=== PATIENT | female | born 1995 | race American Indian/Alaskan Native ===

== ENCOUNTER 2019-04-29 21:48 | Inpatient (IN) | payer SELFPAY ==
[2019-04-30 01:01] LABS: Bacteria,Urine 1+ /HPF (Negative); Bilirubin,Urine NEG (Negative); Blood,Urine NEG (Negative); Color,Urine Yellow (Yellow); Mucus,Urine 3+ /HPF; Urobilinogen,Urine < 2.0 mg/dL (<2.0)
[2019-04-30 01:02] LABS: HCG Qualitative,Urine Negative (Negative)
[2019-04-30] MEDS ORDERED: LIDOCAINE VISCOUS 2% PO ONE (03:45)
[2019-04-30] MEDS ORDERED: NACL 0.9% 1000 ML 1,000 ML IV ONE (03:45)
[2019-04-30] MEDS ORDERED: ALUM-MAG HYDROX-SIMETH 200-200-20MG/5ML PO ONE (03:45)
[2019-04-30] MEDS ORDERED: ZOFRAN ONE ×2 (04:00→18:04)
[2019-04-30] MEDS ORDERED: ZOFRAN IV ONE (04:00)
[2019-04-30 04:18] LABS: Basophils # (Auto) 0.1 K/mm3 (0.0-0.1); Basophils % (Auto) 0.5 % (0.0-1.8); Eosinophils # (Auto) 0.2 K/mm3 (0.0-0.4); Eosinophils % (Auto) 1.7 % (0.0-4.3); Hematocrit 30.2 % (30.3-42.9); Lymphocytes # (Auto) 2.6 K/mm3 (1.2-5.4); Lymphocytes % (Auto) 26.1 % (13.4-35.0); Mean Corpuscular Volume 84 fl (79-97); Monocytes # (Auto) 0.9 K/mm3 (0.0-0.8); Platelet Count 220 K/mm3 (140-440); Red Cell Distribution Width 14.5 % (13.2-15.2)
[2019-04-30 04:23] LABS: Hemoglobin 10.1 gm/dl (10.1-14.3); Mean Corpuscular HGB Conc 33 % (30-34)
--- NOTE | 2019-04-30 04:32 | Emergency Department Report ---
ED Abdominal Pain HPI - General Chief Complaint: Abdominal Pain Stated Complaint: PELVIC,CHEST,ABDOMINAL SHOULDER PAIN Time Seen by Provider: 04/30/19 03:43 Source: patient Mode of arrival: Ambulatory Limitations: No Limitations - History of Present Illness Initial Comments: Patient 23-year-old -French female who presents for abdominal pain lesly t radiates from pelvic to epigastric to right to right shoulder pain described as pressure that moves around as twisting and stabbing, pain is 5/10 pressure relieved by flatulence exacerbated by movment and palpation last BM this afternoon moderate amount, pt denies fever or chills. MD Complaint: abdominal pain Onset/Timin -: days(s) Location: periumbilical Radiation: epigastric Migration to: periumbilical Severity: moderate Severity scale (0 -10): 5 Quality: cramping, sharp Consistency: constant Improves With: other (flatulence) Worsens With: other (movemetn ) Associated Symptoms: nausea, constipation. denies: vomiting, diarrhea, fever, chills, dysuria, melena - Related Data LMP Date: 03/24/19 Allergies Allergy/AdvReac Type Severity Reaction Status Date / Time amoxicillin Allergy Unknown Verified 04/29/19 21:53 ED Review of Systems ROS: Stated complaint: PELVIC,CHEST,ABDOMINAL SHOULDER PAIN Other details as noted in HPI Constitutional: denies: chills, fever Eyes: denies: eye pain, eye discharge, vision change ENT: denies: ear pain, throat pain Respiratory: denies: cough, shortness of breath, wheezing Cardiovascular: denies: chest pain, palpitations Endocrine: no symptoms reported Gastrointestinal: abdominal pain, nausea, constipation. denies: diarrhea, h ematemesis, melena, hematochezia Genitourinary: as per HPI. denies: urgency, dysuria, frequency, hematuria, discharge, abnormal menses, dyspareunia Musculoskeletal: denies: back pain, joint swelling, arthralgia, myalgia Skin: denies: rash, lesions Neurological: denies: headache, weakness, paresthesias Psychiatric: denies: anxiety, depression Hematological/Lymphatic: denies: easy bleeding, easy bruising ED Past Medical Hx - Past Medical History Previous Medical History?: No - Surgical History Past Surgical History?: No - Social History Smoking Status: Never Smoker Substance Use Type: Alcohol ED Physical Exam - General Limitations: No Limitations General appearance: alert, in no apparent distress - Head Head exam: Present: atraumatic, normocephalic - Eye Eye exam: Present: normal appearance, PERRL, EOMI Pupils: Present: normal accommodation - ENT ENT exam: Present: normal orophraynx, mucous membranes moist - Neck Neck exam: Present: normal inspection, full ROM. Absent: tenderness, lymphadenopathy - Expanded Neck Exam Expanded Neck exam: Absent: tenderness - Respiratory Respiratory exam: Present: normal lung sounds bilaterally. Absent: respiratory distress, wheezes, stridor, chest wall tenderness - Cardiovascular Cardiovascular Exam: Present: regular rate, normal rhythm, normal heart sounds. Absent: systolic murmur, diastolic murmur, rubs, gallop - GI/Abdominal GI/Abdominal exam: Present: soft, tenderness (epigastric ), guarding, rebound (LLQ ), normal bowel sounds. Absent: distended, rigid, bruit, hernia - Rectal Rectal exam: Present: deferred - External exam: Present: other (exam deferred per patient ) - Extremities Exam Extremities exam: Present: normal inspection, full ROM, normal capillary refill. Absent: tenderness, pedal edema, joint swelling, calf tenderness - Back Exam Back exam: Present: normal inspection, full ROM. Absent: tenderness, CVA tenderness (R), CVA tenderness (L), muscle spasm, paraspinal tenderness, rash noted - Neurological Exam Neurological exam: Present: alert, oriented X3, CN II-XII intact, normal gait, reflexes normal - Psychiatric Psychiatric exam: Present: normal affect, normal mood - Skin Skin exam: Present: warm, dry, intact, normal color. Absent: rash ED Course Vital Signs 04/29/19 04/29/19 21:55 22:01 Temperature 98.2 F 98.2 F Pulse Rate 99 H 97 H Respiratory 16 18 Rate Blood Pressure 112/72 112/72 O2 Sat by Pulse 98 97 Oximetry ED Medical Decision Making - Lab Data Result diagrams: 04/30/19 06:33 04/30/19 03:52 Labs 04/30/19 04/30/19 04/30/19 00:13 03:52 03:52 WBC 9.9 RBC 3.60 L Hgb 10.1 Hct 30.2 L MCV 84 MCH 28 MCHC 33 RDW 14.5 Plt Count 220 Lymph % (Auto) 26.1 [place] % (Auto) 9.0 H Eos % (Auto) 1.7 Baso % (Auto) 0.5 Lymph # 2.6 [place] # 0.9 H Eos # 0.2 Baso # 0.1 Seg Neutrophils % 62.7 Seg Neutrophils # 6.2 Sodium 139 Potassium 3.9 Chloride 99.0 Carbon Dioxide 26 Anion Gap 18 BUN 15 Creatinine 0.7 Estimated GFR > 60 BUN/Creatinine Ratio 21 Glucose 85 Calcium 9.3 Total Bilirubin 1.70 H AST 23 ALT 11 Alkaline Phosphatase 42 Total Protein 7.4 Albumin 4.2 Albumin/Globulin Ratio 1.3 Lipase 16 Urine Color Yellow Urine Turbidity Slightly-cloudy Urine pH 5.0 Ur Specific [place] 1.029 Urine Protein 100 mg/dl Urine Glucose (UA) Neg Urine Ketones 80 Urine Blood Neg Urine Nitrite Neg Urine Bilirubin Neg Urine Urobilinogen < 2.0 Ur Leukocyte Esterase Neg Urine WBC (Auto) 5.0 Urine RBC (Auto) 2.0 U Epithel Cells (Auto) 4.0 Urine Bacteria (Auto) 1+ Urine Mucus 3+ Urine HCG, Qual Negative - Radiology Data Radiology results: report reviewed, image reviewed Ordering Physician: CHARMAINE MERCER NP Date of Service: 04/30/19 Procedure(s): XR abdomen 1V ap Accession Number(s): [id number] cc: CHARMAINE MERCER NP Fluoro Time In Minutes: ABDOMEN 1 VIEW(S) INDICATION / CLINICAL INFORMATION: abd pain. COMPARISON: None available. FINDINGS: TUBES / LINES: None. BOWEL GAS PATTERN: Gas is scattered in a nonobstructive fashion. Negative for suspicious calcification or significant constipation. ADDITIONAL FINDINGS: No significant additional findings. Signer Name: Alec Navas MD Signed: 04/30/2019 4:46 AM Workstation Name: [id number] Transcribed By: ES Dictated By: Alec Navas MD Electronically Authenticated By: Alec Navas MD Signed Date/Time: 04/30/19445 DD/ 4 TD/TT: Ordering Physician: CHARMAINE MERCER NP Date of Service: 04/30/19 Procedure(s): CT abdomen pelvis wo con Accession Number(s): [id number] cc: CHARMAINE T. RELEFORD, [employer] MANAGER CT abdomen pelvis wo con INDICATION: Generalized abdominal pain. TECHNIQUE: All CT scans at this location are performed using the following dose modulation technique: Automated exposure control. CONTRAST: None. COMPARISON: None available. CT ABDOMEN: The parenchymal organs are unremarkable in appearance. Negative for abdominal mass, localized fluid collection or adenopathy. The bowel is not dilated or thickened. High density ascites is seen adjacent to the liver and at the paracolic gutters right greater than left. CT PELVIS: CT pelvis: Moderate size hematoma measuring approximately 10 cm deep within the pelvis. Mild high density ascites is also present. IMPRESSION: Pelvic hematoma with associated bloody ascites. Ruptured ovarian cyst or ectopic is the most likely etiology. Signer Name: Alec Navas MD Signed: 04/30/2019 5:54 AM Workstation Name: [id number] Transcribed By: JEVON Dictated By: Alec Navas MD Electronically Authenticated By: Alec Navas MD Signed Date/Time: 04/30/1954 DD/ 0549 TD/TT: - Medical Decision Making Abd pain now 4/10 after IVFs , Zofran pt is tolerating po, 0540: KUB Normal, pain still 4/[address] Abd pelvis for generalized abdominal pain , 0610: CT Abd Pelvis: Pelvic hematoma with associated bloody ascites. Ruptured ovarian cyst or ectopic is the most likely etiology. HCG is negative, consulted ED Attending, recommendation Admit to [employer]NAGER, General Surgery Consult , equipment monitor phototypesetting, NPO, 2 Large Bore IVFs, 0620: Consulted [employer] Dr. Maldonado recommendation Consult General Surgery for Adm ission 0625: Conusulted Gen Surgery Dr. Ha, recommendation , consult General Surgery will see pt today, Admit to [employer] [employer] [facility] 0630: [employer] MANAGER Dr Maldonado: Obtain US Pelvis, repeat H/H call back with results. 0715: Pt admitted Dr. Maldonado, dx Pelvic Hematoma pt awaiting bed assignment to 4th floor telem, Dr Maldonado to see pt , Dr. Ha to see pt, US and H/H results still pending. Critical care attestation.: If time is entered above; I have spent that time in minutes in the direct care of this critically ill patient, excluding procedure time. ED Disposition Clinical Impression: Pelvic hematoma Disposition: OP ADMIT IP TO THIS HOSP Is pt being admited?: Yes Does the pt Need Aspirin: No Condition: Stable Instructions: Abdominal Pain (ED)
[2019-04-30 04:37] LABS: Alanine Aminotransferase 11 units/L (7-56); Albumin 4.2 g/dL (3.9-5); BUN/Creatinine Ratio 21; Blood Urea Nitrogen 15 mg/dL (7-17); Calcium 9.3 mg/dL (8.4-10.2); Hemolysis Index 8
--- NOTE | 2019-04-30 04:50 | XRay Report ---
ABDOMEN 1 VIEW(S) INDICATION / CLINICAL INFORMATION: abd pain. COMPARISON: None available. FINDINGS: TUBES / LINES: None. BOWEL GAS PATTERN: Gas is scattered in a nonobstructive fashion. Negative for suspicious calcificatio n or significant constipation. ADDITIONAL FINDINGS: No significant additional findings. Signer Name: Alec Navas MD Signed: 04/30/2019 4:46 AM Workstation Name: [employer]
--- NOTE | 2019-04-30 05:59 | Cat Scan Report ---
CT abdomen pelvis wo con INDICATION: Generalized abdominal pain. TECHNIQUE: All CT scans at this location are performed using the following dose modulation technique: Automated exposure control. CONTRAST: None. COMPARISON: None available. CT ABDOMEN: The parenchymal organs are unremarkable in appearance. Negative for abdominal mass, local ized fluid collection or adenopathy. The bowel is not dilated or thickened. High density ascites is seen adjacent to the liver and at the paracolic gutters right greater than le ft. CT PELVIS: CT pelvis: Moderate size hematoma measuring approximately 10 cm deep within the pelvis. Mi ld high density ascites is also present. IMPRESSION: Pelvic hematoma with associated bloody ascites. Ruptured ovarian cyst or ectopic pregnanc y is the most likely etiology. Signer Name: Alec Navas MD Signed: 04/30/2019 5:54 AM Workstation Name: [id number]
--- NOTE | 2019-04-30 06:16 | Event Note ---
Date of service: 04/30/19 Face to Face: For this encounter I have reviewed the PA/GSE MECHANIC documentation, treatment plan, medical decision making, and I had face to face time with this patient. Patient found to have lower abdominal pelvic hematoma, bloody ascites, and is fairly tender. She is afebrile with reassuring vital signs. Plan is emergent gynecologic consult, nothing by mouth, placed in a monitored setting, 2 large- bore IV access, pain medication as needed, and probable admission for serial abdominal exams. Discussed this plan of care with the patient. Vital Signs 04/29/19 04/29/19 21:55 22:01 Temperature 98.2 F 98.2 F Pulse Rate 99 H 97 H Respiratory 16 18 Rate Blood Pressure 112/72 112/72 O2 Sat by Pulse 98 97 Oximetry Lab Results 04/30/19 04/30/19 04/30/19 Range/Units 00:13 03:52 03:52 WBC 9.9 (4.5-11.0) K/mm3 RBC 3.60 L (3.65-5.03) M/mm3 Hgb 10.1 (10.1-14.3) gm/dl Hct 30.2 L (30.3-42.9) % MCV 84 (79-97) fl MCH 28 (28-32) pg MCHC 33 (30-34) % RDW 14.5 (13.2-15.2) % Plt Count 220 (140-440) K/mm3 Lymph % (Auto) 26.1 (13.4-35.0) % [place] % (Auto) 9.0 H (0.0-7.3) % Eos % (Auto) 1.7 (0.0-4.3) % Baso % (Auto) 0.5 (0.0-1.8) % Lymph # 2.6 (1.2-5.4) K/mm3 [place] # 0.9 H (0.0-0.8) K/mm3 Eos # 0.2 (0.0-0.4) K/mm3 Baso # 0.1 (0.0-0.1) K/mm3 Seg Neutrophils % 62.7 (40.0-70.0) % Seg Neutrophils # 6.2 (1.8-7.7) K/mm3 Sodium 139 (137-145) mmol/L Potassium 3.9 (3.6-5.0) mmol/L Chloride 99.0 (98-107) mmol/L Carbon Dioxide 26 (22-30) mmol/L Anion Gap 18 mmol/L BUN 15 (7-17) mg/dL Creatinine 0.7 (0.7-1.2) mg/dL Estimated GFR > 60 ml/min BUN/Creatinine Ratio 21 % Glucose 85 (65-100) mg/dL Calcium 9.3 (8.4-10.2) mg/dL Total Bilirubin 1.70 H (0.1-1.2) mg/dL AST 23 (5-40) units/L ALT 11 (7-56) units/L Alkaline Phosphatase 42 (35-129) units/L Total Protein 7.4 (6.3-8.2) g/dL Albumin 4.2 (3.9-5) g/dL Albumin/Globulin Ratio 1.3 % Lipase 16 (13-60) units/L Urine Color Yellow (Yellow) Urine Turbidity Slightly-cloudy (Clear) Urine pH 5.0 (5.0-7.0) Ur Specific [place] 1.029 (1.003-1.030) Urine Protein 100 mg/dl (Negative) mg/dL Urine Glucose (UA) Neg (Negative) mg/dL Urine Ketones 80 (Negative) mg/dL Urine Blood Neg (Negative) Urine Nitrite Neg (Negative) Urine Bilirubin Neg (Negative) Urine Urobilinogen < 2.0 (<2.0) mg/dL Ur Leukocyte Esterase Neg (Negative) Urine WBC (Auto) 5.0 (0.0-6.0) /HPF Urine RBC (Auto) 2.0 (0.0-6.0) /HPF U Epithel Cells (Auto) 4.0 (0-13.0) /HPF Urine Bacteria (Auto) 1+ (Negative) /HPF Urine Mucus 3+ /HPF Urine HCG, Qual Negative (Negative) Print Report Referring Physician: CHARMAINE MERCER Patient Name: DEMAR CHAVEZ Date of : 1995 Sex: Female Report Date: 2019-04-30 Report Status: Finalized Findings [facility] [address] [place] [address] Cat Scan Report Signed Patient: DEMAR CHAVEZ MR#: [id number] : 1995 Acct:[id number] Age/Sex: 23 / F ADM Date: 04/29/19 Loc: ED Attending Dr: Ordering Physician: CHARMAINE MERCER NP Date of Service: 04/30/19 Procedure(s): CT abdomen pelvis wo con Accession Number(s): [id number] cc: CHARMAINE MERCER NP CT abdomen pelvis wo con INDICATION: Generalized abdominal pain. TECHNIQUE: All CT scans at this location are performed using the following dose modulation technique: Automated exposure control. CONTRAST: None. COMPARISON: None available. CT ABDOMEN: The parenchymal organs are unremarkable in appearance. Negative for abdominal mass, localized fluid collection or adenopathy. The bowel is not dilated or thickened. High density ascites is seen adjacent to the liver and at the paracolic gutters right greater than left. CT PELVIS: CT pelvis: Moderate size hematoma measuring approximately 10 cm deep within the pelvis. Mild high density ascites is also present. IMPRESSION: Pelvic hematoma with associated bloody ascites. Ruptured ovarian cyst or ectopic is the most likely etiology. Signer Name: Alec Navas MD Signed: 04/30/2019 5:54 AM Workstation Name: [id number] Transcribed By: ES Dictated By: Alec Navas MD Electronically Authenticated By: Alec Navas MD Signed Date/Time: 04/30/19 0554
[2019-04-30 07:12] LABS: Basophils % (Auto) 0.2 % (0.0-1.8); Eosinophils # (Auto) 0.1 K/mm3 (0.0-0.4); Eosinophils % (Auto) 0.8 % (0.0-4.3); Hematocrit 27.2 % (30.3-42.9); Hemoglobin 8.9 gm/dl (10.1-14.3); Lymphocytes # (Auto) 1.8 K/mm3 (1.2-5.4); Lymphocytes % (Auto) 13.7 % (13.4-35.0); Mean Corpuscular HGB Conc 33 % (30-34); Mean Corpuscular Volume 84 fl (79-97); Monocytes # (Auto) 1.1 K/mm3 (0.0-0.8); Monocytes % (Auto) 8.4 % (0.0-7.3); Platelet Count 189 K/mm3 (140-440); Red Blood Count 3.24 M/mm3 (3.65-5.03); Red Cell Distribution Width 14.6 % (13.2-15.2)
[2019-04-30 07:21] LABS: INR 1.16 (0.87-1.13); Partial Thromboplastin Time 24.3 Sec. (24.2-36.6)
--- NOTE | 2019-04-30 07:39 | Ultrasound Report ---
Pelvic Ultrasound HISTORY: Acute generalized pelvic pain, pelvic hematoma seen on CT abdomen from today. TECHNIQUE: Grayscale and color Doppler imaging performed. COMPARISON: CT abdomen/pelvis from today FINDINGS: Transabdominal imaging was performed. Uterus measures 7.7 x 4.3 x 5.8 cm. The endometrial e cho complex measures 1 cm. Neither ovary was visualized. There is large volume mildly complex free fl uid. IMPRESSION: Limited transabdominal imaging demonstrates large volume mildly complex free fluid consis tent with blood products as seen on the CT abdomen/pelvis from today. Neither ovary was visualized on this exam. The uterus itself is unremarkable. Signer Name: Rodolfo Zapata MD Signed: 04/30/2019 7:35 AM Workstation Name: [id number]
--- NOTE | 2019-04-30 08:46 | History and Physical Report ---
History of Present Illness Chief complaint: diffuse abdominal pain radiation to shoulder History of present illness: 23yo MACO 02/06/19 that presented to ED complaining of 8/10 pelvic pain radiating to left shoulder. Pelvic CT revealed 10 cm pelvic hematoma suspected ruptured hemorrhagic cyst or ectopic . Her betaHCG has remained <2. On ultrasound her ovaries are unidentifiable, uterus appears normal. She was admitted for observation and Hgb dropped 10-->8 within 4 hours so decision made to proceed to diagnostic laparoscopy with possible exploratory laparatomy to identify source of bleeding and evacuate hemoperitoneum. She denies any headache or lightheadedness. She states she becomes short of breath when the pain radiates abdominally. Past History Past Medical History: other (Miscarriage March 26 in ED in [place]. States she was told uterus was empty and the rest would empty itself. ) Past Surgical History: other (childhood oral surgery) SENIOR GROUP MANAGER History: chlamydia (treated) Family/Genetic History: diabetes Social history: other (Drinks alcohol every weekend. 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 Significant other present in hospital) - Obstetrical History : 1 Hx # Term Pregnancies: 0 Spontaneous Abortions: 1 Medications and Allergies Allergies Allergy/AdvReac Type Severity Reaction Status Date / Time amoxicillin Allergy Unknown Verified 04/29/19 21:53 Home Medications Medication Instructions Recorded Confirmed Last Taken Type No Known Home Medications [No 04/30/19 04/30/19 Unknown History Reported Home Medications] - Vital Signs Vital signs: Vital Signs Temp Pulse Resp BP Pulse Ox 98.2 F 99 H 16 112/72 98 04/29/19 21:55 04/29/19 21:55 04/29/19 21:55 04/29/19 21:55 04/29/19 21:55 Temp Pulse Resp BP Pulse Ox 97.8 F 75 17 98/61 99 04/30/19 07:54 04/30/19 07:54 04/30/19 07:54 04/30/19 07:54 04/30/19 07:54 - Physical Exam Abdomen: Positive: soft, tenderness (R > L) Genitourinary (Female): Positive: normal external genitalia, other (suprapubic tenderness) Vulva: both: normal Results Result Diagrams: 04/30/19 12:27 04/30/19 03:52 Abnormal lab results 04/30/19 04/30/19 04/30/19 Range/Units 03:52 03:52 06:33 WBC (4.5-11.0) K/mm3 RBC 3.60 L (3.65-5.03) M/mm3 Hgb (10.1-14.3) gm/dl Hct 30.2 L (30.3-42.9) % [place] % (Auto) 9.0 H (0.0-7.3) % [place] # 0.9 H (0.0-0.8) K/mm3 Seg Neutrophils % (40.0-70.0) % Seg Neutrophils # (1.8-7.7) K/mm3 INR 1.16 H (0.87-1.13) Total Bilirubin 1.70 H (0.1-1.2) mg/dL 04/30/19 Range/Units 06:33 WBC 12.9 H (4.5-11.0) K/mm3 RBC 3.24 L (3.65-5.03) M/mm3 Hgb 8.9 L (10.1-14.3) gm/dl Hct 27.2 L (30.3-42.9) % [place] % (Auto) 8.4 H (0.0-7.3) % [place] # 1.1 H (0.0-0.8) K/mm3 Seg Neutrophils % 76.9 H (40.0-70.0) % Seg Neutrophils # 9.9 H (1.8-7.7) K/mm3 INR (0.87-1.13) Total Bilirubin (0.1-1.2) mg/dL All other labs normal. Assessment and Plan - Patient Problems (1) Pelvic hematoma Current Visit: Yes Status: Acute Plan to address problem: 1. Admit for observation 2. Draw serial betaHCGs, monitor vitals 3. Keep NPO 4. If becomes hemodynamically unstable or hemoglobin trends down significantly, will proceed to diagnostic laparoscopy. 5. After observation period, significant drop in hemoglobin noted. Decision made to proceed to diagnostic lap, possible exploratory laparotomy. Risks including but not limited to continued bleeding, infection, injury to organs including bladder, bowel, vessels, removal of tube and or ovary, need for laparotomy were discussed. Benefits and alternatives were discussed and informed consent signed. 6. Type and cross, transfuse 2 units pRBCs.
[2019-04-30] MEDS ORDERED: MORPHINE IV PRN (09:30)
[2019-04-30] MEDS ORDERED: LACTATED RINGERS 1,000 ML ONE ×2 (09:55→14:20)
[2019-04-30] MEDS: LACTATED RINGERS 1,000 ML IV SCH ×2 (09:59→15:09)
[2019-04-30 10:28] LABS: Hematocrit 27.4 % (30.3-42.9)
[2019-04-30 13:02] LABS: Hematocrit 25.6 % (30.3-42.9); Mean Corpuscular HGB Conc 31 % (30-34); Mean Corpuscular Volume 88 fl (79-97); Platelet Count 175 K/mm3 (140-440); Red Cell Distribution Width 14.6 % (13.2-15.2)
[2019-04-30] MEDS ORDERED: NACL 0.9% 500 ML 500 ML IV NR (13:42)
[2019-04-30] MEDS ORDERED: CLEOCIN 900 MG/50 mL 900 MG/50 ML BAG IV NR (13:44)
[2019-04-30] MEDS ORDERED: GENTAMICIN 80 MG in NACL 0.9% 100 ML IV NR (13:44)
--- NOTE | 2019-04-30 14:09 | Anesthesia Day of Surgery ---
Anesthesia Day of Surgery - Day of Surgery Patient Examined: Yes Patient H&P Reviewed: Yes Patient is NPO: Yes
--- NOTE | 2019-04-30 14:09 | Anesthesia Consultation ---
Anesthesia Consult and Med Hx Date of service: 04/30/19 - Airway Anesthetic Teeth Evaluation: Good ROM Head & Neck: Adequate Mental/Hyoid Distance: Adequate Mallampati Class: Class II Intubation Access Assessment: Good - Pulmonary Exam CTA: Yes - Cardiac Exam Cardiac Exam: RRR - Pre-Operative Health Status ASA Pre-Surgery Classification: ASA1 Proposed Anesthetic Plan: General - Pulmonary Hx Asthma: No COPD: No Hx Pneumonia: No - Endocrine Hx End Stage Renal Disease: No
[2019-04-30] MEDS ORDERED: SUBLIMAZE ONE (14:11)
[2019-04-30] MEDS ORDERED: XYLOCAINE MPF 2% ONE (14:11)
[2019-04-30] MEDS ORDERED: VERSED ONE (14:11)
[2019-04-30] MEDS ORDERED: DIPRIVAN 10 MG/ML IV ONE (14:12)
[2019-04-30] MEDS ORDERED: MARCAINE 0.5% INFILTRATI ONE ×2 (14:15→15:23)
[2019-04-30] MEDS ORDERED: ZEMURON IV ONE (14:18)
[2019-04-30] MEDS ORDERED: GENTAMICIN/NS 80 MG/100 ML 100 ML IV ONE (14:28)
[2019-04-30] MEDS ORDERED: ROBINUL ONE (18:04)
[2019-04-30] MEDS ORDERED: BLOXIVERZ ONE (18:04)
[2019-04-30] MEDS ORDERED: DECADRON ONE (18:04)
[2019-04-30] MEDS ORDERED: DILAUDID ONE (18:21)
[2019-04-30] MEDS ORDERED: TORADOL ONE (18:22)
[2019-04-30] MEDS ORDERED: ZOFRAN IV PRN (18:51)
--- NOTE | 2019-04-30 18:51 | Operative Report ---
Operative Report Operative Report: Date of OPERATION 04/30/19 PRE-OP Diagnosis 1. Pelvic Hematoma (10cm) 2. Anemia 3. Hemodynamically unstable PRE-OP Diagnosis 1. Pelvic Hematoma (10cm) 2. Anemia 3. Hemodynamically unstable Procedure 1. Diagnostic laparoscopy converted to Exploratory laparatomy 2. Evacuation of pelvic hematoma Surgeon: Dr. Britany Maldonado Findings 1. Anteverted 7wk uterus 2. Normal uterus, bilateral ovaries and tubes 3. Pelvic hematoma obliterating right adnexa 4. Bloody ascites I/O EBL 1000ml (clots, pelvic hematoma) UOP 425ml clear IVF: 2700ml LR Intra-op Transfusion: 1 units pRBCs. Specimens removed 1. Right pelvic hematoma rule out ovarian cyst Anesthesia: General DISPOSITION: Patient extubated and transported to OR in stable condition. INDICATIONS: 23yo presents to ER with abdominal pain radiating to left shoulder. She became hypotensive and hemoglobin noted to drop 10-->8 while being observed. Due to progressive anemia and worsening hypotension the recommendation to proceed to surgical management for control of bleeding and evacuation of pelvic hematoma was made. The risks including but not limited to bleeding, infection, injury to surrounding organs such as bowel, bladder, blood vessels, possible uterine perforation and potential reduced fertility were discussed. Alternatives and benefits were discussed and informed consent signed. PROCEDURE: The patient was taken to the Main OR in stable condition and placed in the supine position. In anticipation of a possible exploratory laparotomy the patient received Clindamycin and Genamicin IV. Adequate anesthesia was achieved. SCDs were placed. She was placed in the dorsal lithotomy position in Romero stirrups and prepped and draped in a sterile fashion. A time out was done. A palomino catheter was placed. Attention was turned to the perineum and a sterile speculum was placed per vagina. A single-toothed tenaculum was placed on the anterior lip of the cervix and a balloon uterine manipulator was placed into the uterus. The speculum and tenaculum were removed. Attention was then turned to the abdomen where an infraumbilical incision was made with the scalpel. A 5mm Applied FiOs trocar was then placed through the incision under direct visualization. Entry into the abdominal cavity was not achieved therefore a 10mm trocar with ballon was placed after direct dissection into the peritoneal cavity after extending previous umbilical scar. The abdomen was insufflated with adequate CO2 gas. The anterior abdominal wall was visualized but no bowel contents were visible due bright red blood. The entire abdomen was filled with blood. A 5mm suprapubic trocar was placed under direct visualization to accommodate a suction rate manager. Due to the limited visibility the decision was made to convert to an exploratory laparatomy. A Pfannesteil incision was made in the skin with the scalpel and carried down to the fascia. The fascia was incised at the midline and incision extended laterally. The fascia was dissected off the rectus muscle at the caudal and cranial end. Entry into the peritoneum was achieved and the incision was extended. The bloody ascites was suctioned from the abdomen. An Elan-O rectractor was placed intraabdominally. The left tube and ovary were visualized and noted to be normal. To aid in visualiztion the Elan retractor was removed and an O'Nader/O'Navas retractor was placed and bowel packed with moist lap sponges. The uterine manipulator was used to elevate the uterus out of the pelvis and it appeared normal. The right tube and ovary were visualized and the right adnexa was noted to be filled with ~500ml of blood clots. The clots were elevated out of the pelvis. The patient was taken out of trendelenburg and the abdomen was irrigated. No blood pooling was noted to in the abdominal or pelvic cavity. The peritoneum and rectus muscle was repaired with 2-0 Vicryl. The fascia was closed with 0-Vicryl. The subcutaneous layer was reapproximated with 2-0 Vicryl and the skin was closed with 4-0 Vicryl. The infraumbilical incision was closed with 4-0 Vicryl and dermabond. The suprapubic port closed with dermabond. The uterine manipulator was removed from the uterus. I was present and scrubbed for the entire procedure. All counts were correct x 3. Patient was awakened from anesthesia in stable condition and transported to the PACU.
[2019-04-30] MEDS ORDERED: TYLENOL PO PRN (18:56)
[2019-04-30] MEDS ORDERED: BENADRYL IV PRN (18:57)
[2019-04-30] MEDS ORDERED: TORADOL IV PRN (18:59)
[2019-04-30] MEDS: MORPHINE IV PRN (21:40)
[2019-05-01] MEDS: MORPHINE IV PRN ×2 (02:03→12:41)
[2019-05-01 05:02] LABS: Hematocrit 24.9 % (30.3-42.9); Hemoglobin 8.4 gm/dl (10.1-14.3)
--- NOTE | 2019-05-01 07:40 | Event Note ---
Date: 05/01/19 Late Entry - Spoke with Dr. Maldonado in Pre-op before surgery. Discussed that Gen Surg was not needed at that time and she will call if our assistance is needed.
[2019-05-01] MEDS ORDERED: NORCO 5/325 PO PRN (08:00)
[2019-05-01] MEDS ORDERED: IBUPROFEN PO PRN (08:00)
[2019-05-01] MEDS: LACTATED RINGERS 1,000 ML IV SCH ×2 (11:01→21:52)
--- NOTE | 2019-05-01 13:07 | Progress Note ---
Assessment and Plan - Patient Problems (1) Pelvic hematoma Status: Acute Plan to address problem: 1. H/H stable. Draw final H/H tomorrow AM before planned discharge. 2. Plan: repeat abd/pelvic CT today to ensure ascites no reaccumulation since no identifiable source during surgery. Likely etiology ruptured right ovarian cyst due to location of hematoma deep in right adnexa. 3. Awaiting return of bowel status, with flatus tomorrow patient will be discharged with follow-up with Dr. Maldonado at [facility]. 4. Indepth wound and activity instructions given to patient today. Discouraged travel. Subjective - Subjective Interval history: POD#1 s/p dx lap converted to exp laparotomy for evacuation of pelvic hematoma and hemoperitoneum. 23yo MACO 02/06/19 that presented to ED complaining of 8/10 pelvic pain radiating to left shoulder. Pelvic CT revealed 10 cm pelvic hematoma suspected ruptured hemorrhagic cyst or ectopic . Her betaHCG has remained <2. On ultrasound her ovaries are unidentifiable, uterus appears normal. She was admitted for observation and Hgb dropped 10-->8 within 4 hours so decision made to proceed to diagnostic laparoscopy with possible exploratory laparatomy to identify source of bleeding and evacuate hemoperitoneum. She denies any headache or lightheadedness. She states she becomes short of breath when the pain radiates abdominally. Patient reports: appetite normal, voiding normally, pain well controlled (pain with risin out of bed), ambulating normally (walked to restroom and hospital floor today) Objective - Vital Signs Latest vital signs: Vital Signs Temp Pulse Resp BP BP Pulse Ox 05/01/19 12:41 20 05/01/19 04:49 99.6 F 86 16 90/52 97 04/30/19 23:24 98.3 F 85 16 101/55 99 04/30/19 20:10 84 16 112/68 100 04/30/19 19:56 98.1 F 18 04/30/19 19:40 97.4 F L 85 12 115/70 100 04/30/19 19:30 74 11 L 121/68 100 04/30/19 19:15 79 19 120/73 100 04/30/19 19:00 74 15 116/74 100 04/30/19 18:45 74 14 119/72 100 04/30/19 18:40 77 17 120/74 100 04/30/19 18:35 78 15 122/76 100 04/30/19 18:30 79 19 120/75 100 04/30/19 18:25 97.1 F L 89 16 105/68 100 04/30/19 14:10 98.3 F 84 18 106/63 100 04/30/19 14:00 98.3 F 84 18 106/63 100 Intake and Output 04/30/19 05/01/19 05/01/19 23:59 07:59 15:59 Intake Total 1300 2020 520 Output Total 320 800 Balance 980 1220 520 Intake: IV 1300 1020 40 Lactated Ringers 1,000 ml 1000 @ 100 mls/hr IV DIRECT NEFTALI Rx#:[id number] Left Antecubital 10 20 Right Antecubital 10 20 Oral 0 480 Other 1000 Output: Urine 320 800 Uretheral ([place]) 160 Void 800 Other: Intake, Other Source Saline Solution Total, Intake Amount 0 1000 480 Total, Output Amount 800 Voiding Method Toilet Toilet - Exam Incision: Present: normal, dry, intact, other Comments: 3 incisions infraumbilical-wound dressings intact suprapubic - wound dressing removed clean/dry/intact horizontal incision - steri strips in place; incision clean/dry/intact - Labs Labs: Abnormal lab results 04/30/19 04/30/19 05/01/19 Range/Units 06:33 12:27 04:37 RBC 2.90 L (3.65-5.03) M/mm3 Hgb 8.0 L 8.4 L (10.1-14.3) gm/dl Hct 25.6 L 24.9 L (30.3-42.9) % Crossmatch See Detail
--- NOTE | 2019-05-01 13:08 | Discharge Summary ---
Providers - Providers Date of Admission: 04/30/19 07:15 Attending physician: ALCIRA FITZPATRICK 04/30/19 06:14 Consult to Physician [CONS] Urgent Comment: Consulting Provider: ALCIRA FITZPATRICK Physician Instructions: Reason For Exam: pelvic hematoma 04/30/19 07:19 Consult to Physician [CONS] Urgent Comment: Consulting Provider: SUZE PEACOCK Physician Instructions: Reason For Exam: Pelvic Hematoma Primary care physician: NASREEN FONTANA MD Hospitalization Condition at discharge: Stable - Discharge Diagnoses (1) Pelvic hematoma Status: Acute Plan - Discharge Medications Prescriptions: Ferrous Sulfate [Feosol 325 MG tab] 325 mg PO BID 30 Days #60 tablet Ibuprofen [Motrin 800 MG tab] 800 mg PO Q8HR PRN 30 Days #30 tablet PRN Reason: Pain, Moderate (4-6) HYDROcodone/APAP 5-325 [[place] 5/325] 1 each PO Q4HR PRN 10 Days #30 tablet PRN Reason: Pain , Severe (7-10) - Provider Discharge Summary Additional instructions: [] Smoking cessation referral if applicable(refer to patient education folder for contact #) [] Refer to [facility] Booklet Call your doctor immediately for: * Fever > 100.5 * Heavy vaginal bleeding ( >1 pad per hour) * Severe persistent headache * Shortness of breath * Reddened, hot, painful area to leg or breast * Drainage or odor from incision. * Keep incision clean and dry at all times and follow doctor's instructions regarding bathing/showering - Follow up plan Follow up: NASREEN HOPKINS MD [Primary Care Provider] - 7 Days
[2019-05-01] MEDS: COLACE PO SCH (16:08)
[2019-05-01] MEDS: MYLICON PO SCH ×2 (16:08→21:51)
[2019-05-01] MEDS: FEOSOL PO SCH (21:51)
--- NOTE | 2019-05-01 23:49 | Cat Scan Report ---
CT abdomen pelvis wo con INDICATION: f/u ascites post-op. TECHNIQUE: All CT scans at this location are performed using the following dose modulation technique: Automated exposure control. CONTRAST: None. COMPARISON: 04/30/2019. CT abdomen: The parenchymal organs are unremarkable in appearance. Mild basilar atelectasis is now pr esent. Interval abdominal surgery postsurgical changes including a small amount of air and mild fluid/hemorr bette at the umbilicus. Previously seen abdominal ascites has essentially resolved. CT PELVIS: Bowel is mildly dilated anteriorly. Negative for obstruction or localized thickening. Previously seen pelvic hemorrhage is markedly improved with mild residual. What is likely a right gabriela al cyst measures 3.5 cm. Postoperative air is seen anteriorly. IMPRESSION: 1. Interval surgery with evacuation of hematoma/body ascites. Only mild residual is present. 2. Expected postoperative changes. Signer Name: Alec Navas MD Signed: 05/01/2019 11:45 PM Workstation Name: [id number]
[2019-05-02 06:24] LABS: Hematocrit 21.5 % (30.3-42.9); Hemoglobin 7.2 gm/dl (10.1-14.3)
[2019-05-02] MEDS: COLACE PO SCH (10:57)
[2019-05-02] MEDS: FEOSOL PO SCH (10:57)
[2019-05-02] MEDS: MYLICON PO SCH (10:57)
[2019-05-02 14:58] VITALS: BP 109/68
== END 2019-05-02 15:50 | disposition home or self-care (01) | DRG 743 ==
LOC: ED 21:48 → 4A 04-30 07:15 → 3A 04-30 09:57
PROVIDERS: ADMIT Obstetrics & Gynecology; ATTEND Obstetrics & Gynecology
PROC: 0UC Female Reproductive System, Extirpation (ICD-10-PCS; principal; 2019-04-30)
PROC: 0UJ34ZZ Inspection of Ovary, Percutaneous Endoscopic Approach (ICD-10-PCS; 2019-04-30)
PROC: 30233N1 Transfusion of Nonautologous Red Blood Cells into Peripheral Vein, Percutaneous Approach (ICD-10-PCS; 2019-04-30)
DX: N94.89 Other specified conditions associated with female genital organs and menstrual cycle (principal); I95.9 Hypotension, unspecified; D64.9 Anemia, unspecified; Z72.89 Other problems related to lifestyle; Z83.3 Family history of diabetes mellitus; Z88.1 Allergy status to other antibiotic agents
CPT/HCPCS: 36415; 74018; 74176; 76856; 80053; 81001; 81025; 83690; 84702; 85014; 85018; 85025; 85610; 85730; 86850; 86900; 86901; 86920; 88304; 88307; 88341; 88342; 93005; 93010; 96361; 96374; G0378; J1100; J1170; J1580; J1885; J2250; J2270; J2405; J2704; J2710; J3010; J7030; J7120; P9016